=== PATIENT | female | born 1985 | race Caucasian/White ===

== ENCOUNTER 2017-03-24 17:44 | Emergency (ER) | payer MEDICAID, OTHER ==
[~2017-03-24] VITALS: Ht 160 cm; Wt 58.2 kg
[~2017-03-24 17:44] MED LIST: ALBU18HF INH; ALPR0.254 PO; BUDE10.2 INHALATION; ETHI1TAB31 PO; FLUT16SP NS; FLUT50DI IH; HC/M110O2 TP; HYDR-3605 PO; METH4TAB12 PO; OLAN15TA17 PO; OLAN7.5T9 PO; PANT40TA3 PO; SERT100T9 PO; VENL75CA95 PO
[2017-03-24 17:58] VITALS: BP 131/86; PULSE 90; RESP 18; O2SAT 97
--- NOTE | 2017-03-24 18:56 | ED.REPORT ---
HPI-Psychiatric Illness Date of Service Mar 24, 2017 ED Provider: Renny Suarez DO Patient is a 32 year old female with a history of depression, a previous suicide attempt and schizoaffective disorder who presents to the ED due to increasing suicidal thoughts over the past two days. She has had frequent thoughts over the past two weeks. Per the patient's mother, the last time the patient was this bad, was when she tried to over dose. Patient denies hallucinations, drug use or alcohol use. The patient reports she has tried over dosing and cutting previously to hurt herself. Nursing Notes Stated Complaint: SUICIDAL THOUGHTS Chief Complaint: Psychiatric Complaint Nursing Notes Reviewed: Yes Allergies: Coded Allergies: cyclobenzaprine (Verified Allergy, Severe, DIFFICULTY BREATHING, 01/31/17) ibuprofen (Verified Allergy, Intermediate, right side tingling, 01/31/17) Uncoded Allergies: tegaderm (Adverse Reaction, Mild, skin irritation, itching, burning, ) Scheduled Budesonide/Formoterol 80-4.5 mcg Inh (Symbicort 80-4.5 mcg Inh) 120 Puff Inhaler 2 PUFF INHALATION BID Ethinyl Estradiol/Drospirenone (Drospirenone-Ee 3-0.02 mg Tab) 0.02 Mg-3 Mg (24 ) Tablet 1 EACH PO DAILY Fluticasone Propionate (Flovent Diskus) 50 Mcg Disk.w.dev 1 PUFF IH BID Fluticasone Propionate (Fluticasone Propionate Nasal) 16 Gm [place].susp 2 SPRAY NS BID Hc/Mineral Oil/Petrolat,Wht (Hydrocortisone 1% Absorbase) 25 Gm Oint...g. 25 GM TP DAILY Methylprednisolone (MethylprednisoLONE) 4 Mg Tablet 4 MG PO DAILY Olanzapine (Olanzapine) 15 Mg Tablet 15 MG PO HS Olanzapine (Olanzapine) 7.5 Mg Tablet 7.5 MG PO HS Pantoprazole DR (Pantoprazole DR) 40 Mg Tablet.dr 40 MG PO DAILY Sertraline HCl (Sertraline) 100 Mg Tablet 100 MG PO BID Venlafaxine ER (Venlafaxine ER) 75 Mg Cap.er.24h 75 MG PO DAILY Scheduled PRN Albuterol Sulfate (Ventolin HFA Inhaler) 200 Puff/18 Gm Inhaler 2 PUFF INH Q4 PRN PRN For Wheezing Alprazolam (Alprazolam) 0.25 Mg Tablet 0.25 MG PO HS PRN PRN For Anxiety HydrOXYzine HCl (HydrOXYzine HCl) 10 Mg Tablet 25 MG PO HS PRN PRN For Itching General Time Seen by MD: 18:55 Chief Complaint Suicidal ideation Hx Obtained From: Patient Arrived By: Walk-in Onset Occurred: More than a week ago... (2 weeks) Symptom Duration: Intermittent Recent Healthcare: Recent doctor visit Similar Sx Previous: Yes Risk-Psychiatric Illness Suicide Risk Stratification Suicide Risk Factors - Adult: : Previous attempt: Prior psych admissionNo: Alcohol use, Substance abuse RF Statements: Risk factors reviewed Past Medical History Past Medical History Reports: Depression, Schizophrenia Past Surgical History throat right eye prothesthic Smoking History Never Smoker Social History previous suicide attempt Alcohol Use: Denies alcohol use Drug Use: Denies drug use Other Social History: Good social support Ambulatory Status Independent Review of Systems Basic Review of Systems Eyes: Vision NL ENT: No pain Musculoskeletal: No extremity pain, Full range of motion Respiratory: Denies: Non-productive cough, Shortness of breath GI: Denies: Abdominal pain Neurologic: Denies: Headache Psychiatric: Reports: Depression, Suicidal ideation, Denies: Agitation, Confusion, Delusional, Hallucinations, auditory, Hallucinations, visual, Homicidal ideation, Hostile Complete sys rev & neg: except as marked. Physical Exam Initial Vital Signs Vital Signs (First) Date Time Temp Pulse Resp B/P Pulse Ox O2 Delivery O2 Flow Rate FiO2 03/24/17 17:58 36.9 90 18 131/86 97 Room Air Initial VS: Reviewed General/Constitutional: Awake, Alert Neurologic: Oriented X3, Speech NL Psychiatric: Not homicidal, No hallucinations Abnormal Thinking / Perception: Positive: Suicidal, no plan Head / Eyes: Atraumatic, Normocephalic Respiratory / Chest: Atraumatic, No respiratory distress Skin: Atraumatic, Color NL, No rash, Warm, Dry Upper Extremity / MS: Atraumatic, Full range of motion Interpretation & Diagnostics Lab Results Interpretation Test 03/24/17 19:21 Hold Urine Received (Received) Re-Eval/Medical Decision Re-Evaluation/Progress : Time of Eval: 22:10 Re-Evaluation/Progress Note: Discussed plan for discharge and follow up with psychiatrist tomorrow. Patient agrees to safe plan tonight and will return to the emergency department if she develops thoughts of self harm. All questions were addressed. Patient feels comfortable being discharged into the care of her mother for the night. Counseled Regarding: Diagnosis, Need for follow-up, When/why to return to ED Discharge & Departure Impression: Primary Impression: Suicidal ideations Additional Impression: Acute situational disturbance )( Condition at Discharge: No danger to self, No danger to others, No homicidal ideation Disposition: Home Discharge Condition All VS Reviewed: Yes Condition: Stable Additional Instructions: Stay with your mother for the night. Continue to take your medications. Contact your psychiatrist or primary care physician tomorrow morning about changing your medications back. Do not hesitate to return to the emergency department if you feel unsafe or have thoughts of self harm. Referrals: Maggy De Jesus PA-C (PCP) Kerry Attestation Portions of this note were transcribed by Hilaria Byrne. I, Dr. Suarez personally performed the history, physical exam and medical decision-making; I reviewed and confirmed the accuracy of the information in the transcribed note. Signed by: Kerry Traore, 03/24/17 copies to: Maggy De Jesus PA-C, Todd P DO Mar 24, 2017 18:56 Teresa Byrne Mar 24, 2017 19:12
[2017-03-24 22:41] VITALS: BP 110/79; PULSE 70; O2SAT 99
== END 2017-03-24 22:43 | disposition home or self-care (01) ==
LOC: SED 17:44
DX: R45.851 Suicidal ideations (principal); F43.29 Adjustment disorder with other symptoms; J45.909 Unspecified asthma, uncomplicated; Z90.710 Acquired absence of both cervix and uterus